=== PATIENT | female | born 1960 | race Caucasian/White ===

== ENCOUNTER 2021-09-24 12:11 | Day surgery (SDC) | payer BC ==
[~2021-09-24] VITALS: Ht 154.9 cm; Wt 78.1 kg
[~2021-09-24 12:11] MED LIST: ASCO250CH PO; ASPI81EC PO; CALCAVITD PO; CETI10 PO; CHOL10002 PO; ESCI10 PO; IRON PO; LOVA40 PO; ROSU10TA PO
--- NOTE | 2021-09-24 13:55 | NUR ---
09/24/21 1355 MYRIAM PEARL History, Chart, Medications and Allergies reviewed before start of procedure. Patient confirms NPO status and agrees with scheduled surgery. 3-LEAD EKG REVIEWED WITH PHYSICIAN PRIOR TO START OF PROCEDURE. MONITOR INTACT WITH CONTINUOUS PULSE OXIMETRY AND INTERMITTENT BP. PATIENT DETERMINED TO BE ASA APPROPRIATE FOR PROPOFOL SEDATION PRIOR TO START OF PROCEDURE BY DR. CORTEZ O2 VIA NASAL CANNUYLA /
--- NOTE | 2021-09-24 14:21 | NUR ---
RECIEVED REPORT AND PATIENT FROM ENDO ROOM ONE PRECIOUS PEARL PATIENT CONTINUES TO SLEEP BUT WAKES TO VOICE
--- NOTE | 2021-09-24 14:48 | NUR ---
Discharge instructions reviewed with patient. Patient verbalizes understanding. Copy given to patient to take home. Patient States Post-Procedure ride home has been arranged. Discharged via wheelchair to private car for ride home.
== END 2021-09-24 22:46 | disposition home or self-care (01) ==
LOC: ORSCMMR 12:11 → ORD 13:30 → ORSCMMR 13:30
PROVIDERS: Surgery
PROC: 0DBK8ZX Excision of Ascending Colon, Via Natural or Artificial Opening Endoscopic, Diagnostic (ICD-10-PCS; principal; 2021-09-24 13:30)
PROC: 0DBP8ZX Excision of Rectum, Via Natural or Artificial Opening Endoscopic, Diagnostic (ICD-10-PCS; principal; 2021-09-24 13:30)
DX: Z12.11 Encounter for screening for malignant neoplasm of colon (principal); D12.2 Benign neoplasm of ascending colon; K62.1 Rectal polyp; I10 Essential (primary) hypertension; Z79.899 Other long term (current) drug therapy
CPT/HCPCS: 88305; J2704; J7120

== ENCOUNTER → 2022-01-12 | Outpatient (CLI) | payer BC | END | disposition home or self-care (01) | LOC: LAB SHORT 14:40 → LAB 14:40 → PLD 14:40 | DX: D22.5 Melanocytic nevi of trunk (principal) | CPT/HCPCS: 88305 ==

== ENCOUNTER → 2023-07-05 | Outpatient (CLI) | payer OTHER ==
[2023-07-09 15:53] LABS: HPV GENOTYPE 16 Not Detected; HPV GENOTYPE 18 Not Detected; HPV HIGH RISK Not Detected; HPV SOURCE Cervical/Vag
== END ==
LOC: LAB SHORT 10:39 → LAB 10:39
PROVIDERS: Obstetrics & Gynecology
DX: Z01.419 Encounter for gynecological examination (general) (routine) without abnormal findings (principal)
CPT/HCPCS: 87624; G0123